=== PATIENT | male | born 1950 | race Caucasian/White ===

== ENCOUNTER 2017-10-20 11:10 | Inpatient (IN) | payer OTHER ==
[~2017-10-20] VITALS: Ht 170.2 cm; Wt 67.1 kg
[2017-10-20 11:33] LABS: EOSINOPHIL (%) 1.8 % (0-5); EOSINOPHIL COUNT 0.2 K/uL (0-0.3); HEMATOCRIT 45.6 % (38.0-50.0); IMMATURE GRANULOCYTE (%) 0.8 % (0.0-0.7); IMMATURE GRANULOCYTE COUNT 0.1 K/uL; INSTRUMENT ABS NEUTROPHIL CT 4.5 K/uL; LYMPHOCYTE COUNT 4.2 K/uL (1.0-2.8); MCH 32.4 PG (29.0-34.0); MCHC 34.4 G/DL (30.0-36.0); MCV 94.2 FL (86-99); MEAN PLAT.VOLUME 10.4 uM^3 (9.0-12.4); MONOCYTE (%) 9.9 % (3-12); NEUTROPHIL COUNT 4.5 K/uL (1.8-6.4); PLATELET COUNT 140 K/uL (156-360); RBC DIS.WIDTH-SD 45.1 % (39-53); RED BLOOD COUNT 4.84 M/uL (4.00-5.50)
[2017-10-20 11:41] LABS: AMYLASE 85 IU/L (1-118); CHLORIDE 107 mEq/L (99-109); SODIUM 140 mEq/L (136-147)
[2017-10-20 11:43] LABS: GLUCOSE 113 mg/dL (70-99)
[2017-10-20 11:44] LABS: ANION GAP 6 MEQ/L (2-14)
[2017-10-20 11:46] LABS: SERUM ETHYL ALCOHOL < 10 mg/dL
[2017-10-20 11:47] LABS: GFR ESTIMATE (CALCULATED) > 59 mL/min/ (58.99-99999)
[2017-10-20 11:48] LABS: UREA NITROGEN (BUN) 11 mg/dL (9-23)
[2017-10-20 11:50] LABS: LIPASE 50 U/L (1.0-51.0)
[2017-10-20 13:04] LABS: PROTHROMBIN TIME 11.8 SEC (10.2-12.9)
[2017-10-20 14:55] LABS: ADD MIUA? YES; BILIRUBIN NEGATIVE; BLOOD LARGE; COLOR AMBER ((YELLOW)); GLUCOSE (STRIP) 50; KETONES NEGATIVE; LEUKOCYTES NEGATIVE; NITRITE NEGATIVE; PROTEIN (STRIP) 100; UROBILINOGEN 0.2 MG/DL (0.2-1.0)
[2017-10-20 14:57] LABS: BACTERIA NONE SEEN /HPF; CASTS NONE SEEN /LPF; CRYSTALS NONE SEEN; EPITHELIAL CELLS NONE SEEN /HPF; MUCUS NONE SEEN /LPF; RED BLOOD CELLS TNTC /HPF (0-5); UCUL ADDED? YES; WHITE BLOOD CELLS 0-5 /HPF (0-5)
[2017-10-20 15:04] LABS: ADD MEDTOX COMMENT Y; AMPHETAMINE NEGATIVE (500 ng/mL); BARBITURATES NEGATIVE (200 ng/mL); BENZODIAZEPINES NEGATIVE (150 ng/mL); COCAINE NEGATIVE (150 ng/mL); INTERNAL CONTROLS VALID? YES; METHADONE NEGATIVE (200 ng/mL); METHAMPHETAMINE NEGATIVE (500 ng/mL); OPIATES (MORPHINE) PRESUMPTIVE POSITIVE (100 ng/mL); OXYCODONE NEGATIVE (100 ng/mL); PHENCYCLIDINE NEGATIVE (25 ng/mL); PROPOXYPHENE NEGATIVE (300 ng/mL); THC CANNABINOIDS NEGATIVE (50 ng/mL); TRICYCLIC ANTIDEPRESSANTS NEGATIVE (300 ng/mL)
[2017-10-20 15:17] LABS: SPECIFIC GRAVITY 1.077 (1.000-1.030)
[2017-10-20] MEDS ORDERED: LOPRESSOR50 MG PO (15:38)
[2017-10-20] MEDS ORDERED: ROPINIROLE HC0.25 MG PO (15:38)
[2017-10-20] MEDS ORDERED: DULOXETINE HCL60 MG PO (15:38)
[2017-10-20] MEDS ORDERED: CLOPIDOGREL75 MG PO (15:39)
[2017-10-20] MEDS ORDERED: IMDUR60 MG PO (15:39)
[2017-10-20] MEDS ORDERED: RANITIDINE HCL150 MG PO (15:39)
[2017-10-20] MEDS ORDERED: LISINOPRIL5 MG PO (15:39)
[2017-10-20] MEDS ORDERED: ATORVASTATIN CA40 MG PO (15:39)
[2017-10-20] MEDS ORDERED: MULTI VITAMIN1 EACH PO (15:40)
[2017-10-20] MEDS ORDERED: ASPIR-LOW81 MG PO (15:45)
[2017-10-20] MEDS ORDERED: QUININE SULFAT324 MG PO (15:45)
[2017-10-20 15:48] LABS: POINT-OF-CARE METER ID UU13113747
[2017-10-20 15:58] LABS: OPIATES QUANTITATIVE VALUE 0 NG/ML
[2017-10-20 19:30] VITALS: BP 109/61
[2017-10-20 20:00] VITALS: BP 112/76
[2017-10-20 20:16] VITALS: BP 141/63
[2017-10-20 23:42] VITALS: BP 105/61
[2017-10-21 04:24] VITALS: BP 130/73
[2017-10-21 07:43] LABS: ALKALINE PHOSPHATASE 105 IU/L (3-129); ANION GAP 5 MEQ/L (2-14); CHLORIDE 107 MEQ/L (99-109); GFR ESTIMATE (CALCULATED) > 59 mL/min/ (58.99-99999); GLUCOSE 87 mg/dL (70-99); POTASSIUM 4.2 MEQ/L (3.7-5.4); SAMPLE HEMOLYSIS CHECK 0; SAMPLE ICTERIC CHECK 0; SAMPLE LIPEMIA CHECK 0; SODIUM 139 MEQ/L (136-147); TOTAL BILIRUBIN 0.9 MG/DL (0.0-1.0); UREA NITROGEN (BUN) 10 mg/dL (9-23)
[2017-10-21 08:11] LABS: HEMATOCRIT 39.3 % (38.0-50.0); MCH 33.3 PG (29.0-34.0); MCHC 34.6 G/DL (30.0-36.0); MCV 96.3 FL (86-99); MEAN PLAT.VOLUME 10.4 uM^3 (9.0-12.4); PLATELET COUNT 105 K/uL (156-360); RBC DIS.WIDTH-CV 13.3 % (11.8-14.6); RBC DIS.WIDTH-SD 47.4 % (39-53); RED BLOOD COUNT 4.08 M/uL (4.00-5.50); WHITE BLOOD COUNT 9.1 K/uL (4.1-10.2)
[2017-10-21 08:18] VITALS: BP 123/75
[2017-10-21 12:07] VITALS: BP 134/77
[2017-10-21 15:48] VITALS: BP 133/76
[2017-10-21 20:32] VITALS: BP 145/72
[2017-10-22 00:01] VITALS: BP 140/68
[2017-10-22 07:37] LABS: EOSINOPHIL (%) 1.7 % (0-5); EOSINOPHIL COUNT 0.2 K/uL (0-0.3); HEMATOCRIT 39.1 % (38.0-50.0); IMMATURE GRANULOCYTE (%) 0.2 % (0.0-0.7); INSTRUMENT ABS NEUTROPHIL CT 4.5 K/uL; LYMPHOCYTE COUNT 2.8 K/uL (1.0-2.8); MCH 32.4 PG (29.0-34.0); MCHC 34.3 G/DL (30.0-36.0); MCV 94.4 FL (86-99); MEAN PLAT.VOLUME 10.7 uM^3 (9.0-12.4); MONOCYTE (%) 14.1 % (3-12); MONOCYTE COUNT 1.2 K/uL (0-0.8); NEUTROPHIL (%) 51.6 % (45-76); NEUTROPHIL COUNT 4.5 K/uL (1.8-6.4); PLATELET COUNT 106 K/uL (156-360); RBC DIS.WIDTH-CV 13.2 % (11.8-14.6); RBC DIS.WIDTH-SD 45.3 % (39-53); RED BLOOD COUNT 4.14 M/uL (4.00-5.50); WHITE BLOOD COUNT 8.8 K/uL (4.1-10.2)
[2017-10-22 07:48] VITALS: BP 141/74
[2017-10-22 08:03] LABS: ALKALINE PHOSPHATASE 101 IU/L (3-129); ANION GAP 3 MEQ/L (2-14); CHLORIDE 107 MEQ/L (99-109); DIRECT BILIRUBIN 0.2 mg/dL (0.0-0.3); GFR ESTIMATE (CALCULATED) > 59 mL/min/ (58.99-99999); GLUCOSE 89 mg/dL (70-99); SAMPLE HEMOLYSIS CHECK 0; SAMPLE ICTERIC CHECK 0; SAMPLE LIPEMIA CHECK 0; SODIUM 137 MEQ/L (136-147); TOTAL BILIRUBIN 0.9 MG/DL (0.0-1.0); UREA NITROGEN (BUN) 9 mg/dL (9-23)
[2017-10-22 11:36] VITALS: BP 149/72
[2017-10-22 15:53] VITALS: BP 140/71
[2017-10-22 23:50] VITALS: BP 125/75
[2017-10-23 08:15] VITALS: BP 143/75
[2017-10-23 16:36] VITALS: BP 142/84
[2017-10-23 19:45] VITALS: BP 131/61
[2017-10-23 23:40] VITALS: BP 122/68
[2017-10-24 04:00] VITALS: BP 122/68
[2017-10-24 07:39] VITALS: BP 129/71
[2017-10-24] MEDS ORDERED: SENNA LAX8.6 MG PO (09:48)
[2017-10-24] MEDS ORDERED: HYDROMORPHONE HC2 MG PO (09:48)
[2017-10-24 16:20] VITALS: BP 145/75
[2017-10-24] MEDS ORDERED: DOXYCYCLINE HY100 M3 PO (17:01)
[2017-10-24] MEDS ORDERED: ADVAIR HFA120 INHALA IH ×2 (17:02→17:14)
[2017-10-24] MEDS ORDERED: PREDNISONE20 MG PO (17:03)
[2017-10-24] MEDS ORDERED: SPIRIVA RESPIMAT4 GM IH ×2 (17:04→17:13)
[2017-10-24] MEDS ORDERED: VENTOLIN HFA18 GM IH (17:07)
== END 2017-10-24 17:25 | disposition home or self-care (01) | DRG 964 ==
LOC: TRA 11:10 → 3EAST 17:28 → EDOF 17:28 → ENRESERV 17:33 → 3EAST 19:26
PROVIDERS: Emergency Medicine; Physician Assistant; Surgery
DX: S22.42XA Multiple fractures of ribs, left side, initial encounter for closed fracture (principal); S27.321A Contusion of lung, unilateral, initial encounter; S37.012A Minor contusion of left kidney, initial encounter; R31.0 Gross hematuria; V43.52XA Car driver injured in collision with other type car in traffic accident, initial encounter; E78.00 Pure hypercholesterolemia, unspecified; I10 Essential (primary) hypertension; J98.11 Atelectasis; J44.1 Chronic obstructive pulmonary disease with (acute) exacerbation; J90 Pleural effusion, not elsewhere classified; I25.10 Atherosclerotic heart disease of native coronary artery without angina pectoris; I77.811 Abdominal aortic ectasia; K21.9 Gastro-esophageal reflux disease without esophagitis; R09.02 Hypoxemia; S60.512A Abrasion of left hand, initial encounter; D69.1 Qualitative platelet defects; Z60.2 Problems related to living alone; R39.12 Poor urinary stream; F17.290 Nicotine dependence, other tobacco product, uncomplicated; R91.8 Other nonspecific abnormal finding of lung field; J84.10 Pulmonary fibrosis, unspecified; J20.9 Acute bronchitis, unspecified; G31.89 Other specified degenerative diseases of nervous system; Z87.891 Personal history of nicotine dependence; Z88.5 Allergy status to narcotic agent; Z95.5 Presence of coronary angioplasty implant and graft; Z88.6 Allergy status to analgesic agent; M19.90 Unspecified osteoarthritis, unspecified site; Z79.82 Long term (current) use of aspirin; Z79.01 Long term (current) use of anticoagulants; Y92.410 Unspecified street and highway as the place of occurrence of the external cause
CPT/HCPCS: 70450; 71010; 71020; 71260; 72125; 74177; 80048; 80053; 80076; 81003; 82150; 82948; 83690; 84999; 85025; 85027; 85610; 86850; 86900; 86901; 87086; 94010; 94640; 94640 76; 94667; 94668; 94799; 97530 GP; 99202; 99281; 99285; G0480; J3010; J7120; J7512